=== PATIENT | female | born 2005 | race African-American/Black ===

== ENCOUNTER 2024-06-23 09:49 | Emergency (ER) | payer SELFPAY ==
[~2024-06-23] VITALS: Ht 175.3 cm; Wt 81.6 kg
[2024-06-23 10:05] VITALS: BP 111/70; PULSE 83; RESP 16; TEMP 36.9; O2SAT 100
[2024-06-23 10:32] LABS: BASOPHILS % 0.5 % (0.0-2.0); EOSINOPHILS % 1.3 % (0.0-5.0); HEMATOCRIT. 37.7 % (36.0-48.0); HEMOGLOBIN. 11.8 g/dL (12.0-16.0); LYMPHOCYTES % 22.7 % (20.0-50.0); MEAN CORPUSCULAR HEMOGLOBIN 25.5 pg (28.0-32.0); MEAN CORPUSCULAR HGB CONC 31.4 g/dL (31.0-37.0); MEAN CORPUSCULAR VOLUME 81.3 fL (81.0-99.0); MEAN PLATELET VOLUME 8.3 fl (7.4-10.4); NEUTROPHILS % 67.5 % (40.0-76.0); PLATELET 258 x1000/uL (130-400); RED BLOOD CELL COUNT 4.63 mill/uL (4.2-5.4); RED CELL DISTRIBUTION WIDTH 16.8 % (11.6-14.6); WHITE BLOOD COUNT 6.4 x1000/uL (4.5-11.0)
[2024-06-23 10:38] LABS: CHLORIDE 104 mEq/L (98-107); POTASSIUM 3.7 mEq/L (3.5-5.1); SODIUM 141 mEq/L (136-145)
[2024-06-23 10:39] LABS: CARBON DIOXIDE 26 mEq/L (21-32)
[2024-06-23 10:40] LABS: CALCIUM 10.2 mg/dL (8.7-10.4)
[2024-06-23 10:44] LABS: CREATININE 0.8 mg/dL (0.6-1.0)
[2024-06-23 10:45] LABS: GLUCOSE 100 mg/dL (70-105); UREA NITROGEN BLOOD 9 mg/dL (9-23)
== END 2024-06-23 13:55 | disposition home or self-care (01) ==
LOC: ER 09:59
DX: R42 Dizziness and giddiness (principal)
CPT/HCPCS: 36415; 71045; 80048; 85025; 93005; 99285